=== PATIENT | female | born 1990 | race Caucasian/White ===

== ENCOUNTER 2021-12-21 09:01 | Inpatient (IN) | payer MEDICAID ==
[~2021-12-21] VITALS: Ht 162.6 cm; Wt 58.4 kg
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
[2021-12-21] MEDS ORDERED: hydrOXYzine 25 MG tablet PO ONE ×2 (09:40→11:15)
[2021-12-21] MEDS ORDERED: LORazepam 1 MG tablet PO ONE ×2 (09:40→11:15)
[2021-12-21 10:12] LABS: BASOPHILS % (AUTO) 0.4 % (0-1); EOSINOPHILS % (AUTO) 0 % (0-6); HEMATOCRIT 45.7 % (35.0-45.0); HEMOGLOBIN 15.7 g/dl (12.0-16.0); LYMPHOCYTES # (AUTO) 1.7 X10'3 (1.1-4.8); LYMPHOCYTES % (AUTO) 20.7 % (21-51); MEAN CORPUSCULAR HEMOGLOBIN 29.8 PG (27.0-31.0); MEAN CORPUSCULAR HGB CONC 34.3 g/dL (33.0-36.5); MEAN CORPUSCULAR VOLUME 86.8 FL (78-98); MEAN PLATELET VOLUME 6.8 FL (7.4-10.4); MONOCYTES # (AUTO) 0.7 X10'3 (0-0.9); NEUTROPHILS # (AUTO) 5.8 X10'3 (1.8-7.7); NEUTROPHILS % (AUTO) 70.9 % (42-75); PLATELET COUNT 306 X10'3 (140-440); RED BLOOD COUNT 5.26 X10'6 (4.20-5.60); RED CELL DISTRIBUTION WIDTH 12.8 % (11.5-14.5); WHITE BLOOD COUNT 8.1 X10'3 (4.5-11.0)
[2021-12-21 10:16] LABS: ALANINE AMINOTRANSFERASE 20 U/L (12-78); ALBUMIN 4.2 G/DL (3.4-5.0); ALBUMIN/GLOBULIN RATIO 1.1 (1.1-1.5); ALKALINE PHOSPHATASE 61 IU/L (46-116); ANION GAP 12 (8-16); ASPARTATE AMINO TRANSFERASE 10 U/L (10-37); BILIRUBIN,TOTAL 0.5 MG/DL (0.1-1.0); BLOOD UREA NITROGEN 11 MG/DL (7-18); BUN/CREATININE RATIO 11.8 (6.6-38.0); CALCIUM 9.5 MG/DL (8.5-10.1); CHLORIDE 102 MMOL/L (99-107); CREATININE 0.93 MG/DL (0.40-0.90); GLUCOSE 97 MG/DL (70-104); POTASSIUM 3.5 MMOL/L (3.5-5.1); SODIUM 138 MMOL/L (135-145); TOTAL CARBON DIOXIDE 23.6 MMOL/L (24-32); eGFR 70 ML/MIN
--- NOTE | 2021-12-21 10:46 | NUR ---
Pt's mother took me aside to inform me that the pt and her have been "hiding and using drugs." She is worried about her granddaughters well being. The location of pt's and child are unknown.
[2021-12-21 11:11] LABS: CLARITY,URINE CLEAR (Clear); COLOR,URINE YELLOW (Yellow); GLUCOSE, URINE NEGATIVE (Neg); KETONES,URINE NEGATIVE (Neg); LEUKOCYTE ESTERASE ,URINE NEGATIVE (Neg); NITRITES, URINE NEGATIVE (Neg); OCCULT BLOOD,URINE TRACE-INTACT (Neg); PROTEIN,URINE NEGATIVE (Neg); UROBILINOGEN,URINE 0.2 E.U/dL (0.2-1.0)
[2021-12-21 11:12] LABS: URINE HCG NEGATIVE (NEG)
--- NOTE | 2021-12-21 11:15 | NUR ---
Pt. ambulated over from the main ER accompainied by Tech.
[2021-12-21 11:16] LABS: UA COLLECTION TYPE VOIDED
[2021-12-21 11:17] LABS: URINE AMPHETAMINE SCREEN POSITIVE (Neg); URINE BARBITUATE SCREEN NEGATIVE (Neg); URINE BENZODIAZEPINES SCREEN NEGATIVE (Neg); URINE CANNABINOID SCREEN POSITIVE (Neg); URINE COCAINE SCREEN NEGATIVE (Neg); URINE METHADONE SCREEN NEGATIVE (Neg); URINE OPIATE SCREEN NEGATIVE (Neg); URINE PHENCYCLIDINE SCREEN NEGATIVE (Neg)
[2021-12-21] MEDS ORDERED: BUPR1FIL3 SL (11:17)
[2021-12-21 11:34] LABS: MUCUS STRANDS MANY /LPF (Neg); SQUAMOUS EPITHELIAL CELL,UR MANY /LPF (FEW)
[2021-12-21 11:38] LABS: CAL OXALATE CRYSTALS 1+ /HPF (NEGATIVE)
[2021-12-21 11:39] LABS: BACTERIA,URINE FEW /HPF (Neg); RBC,URINE 0-2 /HPF (0-2); WBC,URINE 0-4 /HPF (0-4)
--- NOTE | 2021-12-21 11:53 | NUR ---
PACKET FAXED TO [facility]
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
--- NOTE | 2021-12-21 12:16 | NUR ---
Pt's home medication, Suboxone was increased to TID per EMILIANO Coreas NP. This is r/t pt's continued drug cravings on previously prescribed BID dose.
--- NOTE | 2021-12-21 12:46 | NUR ---
Pt. is laying in bed and appears to be sleeping at this time, rise and fall of chest noted.
--- NOTE | 2021-12-21 12:56 | NUR ---
ETOH level ordered per Dr. Elena as was not done on admission and is needed by [facility].
[2021-12-21 12:59] LABS: ETHANOL < 0.010 GM/DL (0.0-0.010)
--- NOTE | 2021-12-21 13:25 | NUR ---
[facility] medical social worker at pt's bedside with her mother at this time.
[2021-12-21] MEDS ORDERED: nicotine 14mg patch - 24hr TD ONE (14:00)
[2021-12-21] MEDS: buprenorphine/naloxone 8MG-2MG SUBlingual film SL SCH ×2 (14:19→20:06)
--- NOTE | 2021-12-21 14:21 | NUR ---
Pt. is laying in bed with her eyes closed at this time, no s/s of distress observed.
[2021-12-21 14:48] VITALS: BP 130/88
--- NOTE | 2021-12-21 15:25 | NUR ---
Pt. continues to sleep at this time, rise and fall of chest is noted.
--- NOTE | 2021-12-21 16:24 | NUR ---
Pt. continues to sleep at this time, laying on her right side, rr are even and unlabored. Pt. remains on close observation and is in LOS of nurse's station.
--- NOTE | 2021-12-21 16:50 | NUR ---
Discharge Note: Pt. ambuated off the unit accompanied by Tech and security. She is being transferred to [facility]. Belongings were sent with patient.
[2021-12-21] MEDS ORDERED: acetaminophen 325mg tablet PO PRN ×2 (16:55)
[2021-12-21] MEDS ORDERED: mag hydrox/Alum hydrox/simeth 30ml oral suspension PO PRN (16:55)
[2021-12-21] MEDS ORDERED: loperamide 2mg capsule PO PRN (16:55)
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
[2021-12-21] MEDS ORDERED: hydrOXYzine 25 MG tablet PO PRN (19:30)
[2021-12-21] MEDS: NICOTINE POLACRILEX 2 MG LOZENGE BC PRN (19:34)
[2021-12-21] MEDS: traZODone 50mg tablet PO PRN ×2 (20:06→21:19)
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
[2021-12-22] MEDS: buprenorphine/naloxone 8MG-2MG SUBlingual film SL SCH ×3 (07:47→20:04)
[2021-12-22] MEDS: nicotine 21mg patch - 24 hr TD SCH (07:47)
[2021-12-22 07:59] LABS: CHOL/HDL RATIO 3.9 (0.00-4.99); CHOLESTEROL 181 MG/DL (0-200); HDL CHOLESTEROL 46 MG/DL (35-60); LDL CHOLESTEROL 114 MG/DL (50-100); TRIGLYCERIDES 70 MG/DL (20-135)
[2021-12-22 08:00] VITALS: BP 108/65
[2021-12-22] MEDS: hydrOXYzine 25 MG tablet PO PRN ×2 (10:10→20:04)
[2021-12-22] MEDS: NICOTINE POLACRILEX 2 MG LOZENGE BC PRN ×3 (10:46→18:25)
--- NOTE | 2021-12-22 12:07 | NUR ---
Malnutrition consult: Pt admitted w/ SI and polysubstance abuse per EMR. Per MST pt reports wt loss and decreased appetite. No scaled wt hx in EMR, current wt appropriate for age and ht. Currently on Regular diet w/ 50% intake of first meal. Pt appears WD/WN per ED note. No edema noted. At this time pt does not meet minimum criteria for malnutrition. Will continue to monitor. Addendum: 12/22/21 at [address] Amended: Links added.
[2021-12-22 14:21] LABS: HEMOGLOBIN A1C 5.1 % (4.5-6.2)
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
[2021-12-22] MEDS: traZODone 50mg tablet PO PRN (20:04)
[2021-12-22 20:31] VITALS: BP 131/78
[2021-12-22] MEDS: traZODone 50mg tablet PO SCH (21:00)
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
[2021-12-23 07:46] VITALS: BP 110/71
[2021-12-23] MEDS: buprenorphine/naloxone 8MG-2MG SUBlingual film SL SCH ×3 (08:18→21:18)
[2021-12-23] MEDS: nicotine 21mg patch - 24 hr TD SCH (09:14)
[2021-12-23] MEDS ORDERED: venlafaxine XR 37.5mg cap (Q24H) PO ONE (09:25)
--- NOTE | 2021-12-23 09:27 | NUR ---
Pt. attended group today. The topic today was identifying the triggers, signs and symptoms of an upcoming episode/event so that Pts. can learn to apply coping skills before they get to a bad place with their symptoms. Pt. engaged in group appropriately. Her demeanor was calm and compliant. She listened well to this Pulp Cooker and her peers. She shared her own thoughts and process openly. She was alert and oriented X 4 though she did appear a bit lethargic in her presentation. Her thought content and thought process were WNL. She engaged in the written activity about a triggering thought she has how it makes her feel. She was able to remember a positive action she could do to counter this thought. Malka Godfrey LCSW Addendum: 12/23/21 at 0939 by Malka Godfrey This note should be dated 12/22/21
[2021-12-23] MEDS: LORazepam 0.5 MG tablet PO PRN ×2 (10:44→17:15)
[2021-12-23] MEDS: hydrOXYzine 25 MG tablet PO PRN ×2 (10:46→17:30)
--- NOTE | 2021-12-23 13:30 | NUR ---
Met with patient for substance use and to see if patient was interested in treatment options. Patient would like to go to an inpatient rehab. I gave patient [facility] number to get process started and my card if she had any questions. As I was leaving patient got the phone and was calling [facility].
[2021-12-23] MEDS: NICOTINE POLACRILEX 2 MG LOZENGE BC PRN ×2 (14:17→17:29)
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
[2021-12-23 20:39] VITALS: BP 122/69
[2021-12-23] MEDS: traZODone 50mg tablet PO SCH (21:18)
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
[2021-12-24 07:55] VITALS: BP 108/62
[2021-12-24] MEDS: venlafaxine XR 75mg capsule (Q24H) PO SCH (09:00)
[2021-12-24] MEDS: buprenorphine/naloxone 8MG-2MG SUBlingual film SL SCH ×3 (09:01→20:13)
[2021-12-24] MEDS: nicotine 21mg patch - 24 hr TD SCH (09:01)
--- NOTE | 2021-12-24 11:14 | NUR ---
Pt. attended group today. Each pt. scaled their mood and anxiety level today to practice scaling. We discussed how this can be used as a safety plan tying coping skills to each increment on the scale. We also talked about the functioning of the Limbic System and how it relates to anxiety, depression and anger. Pt. engaged in the group appropriately. She shared her scaling number and her process freely with the group. She was alert and oriented X 4. Her thought content and thought process were WNL. She is actively attempting to move forward and is interested in getting the appropriate help she needs to do so. Her demeanor is calm, compliant and pleasant to work with. She appears to enjoy attending group. Her mood was a bit depressive with a restricted affect. Malka Godfrey LCSW
[2021-12-24] MEDS: LORazepam 0.5 MG tablet PO PRN ×2 (13:04→18:31)
[2021-12-24] MEDS: hydrOXYzine 25 MG tablet PO PRN (14:07)
[2021-12-24] MEDS: NICOTINE POLACRILEX 2 MG LOZENGE BC PRN ×2 (14:09→17:49)
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
--- NOTE | 2021-12-24 16:30 | NUR ---
CM- Linkages Presenting Issues: Pt's expressed desires to enter residential drug rehab and completed [facility] screening but was matched w/an outpatient intensive treatment provider. Interventions: Clinician met w/pt and provided support for pt to contact [facility], [facility] to advocate for herself w/re to inpatient services as oppose to outpt. Per session, pt completed an assessment w/[facility] and will wait for a dispo. As clinician was leaving, RN informed clinician that [facility] wants to speak w/pt, clinician encouraged pt to contact them, pt did. Plan: Clinician will f/u with pt, [facility], and [facility] to get dispo on pt's [facility] services. Marizol Tom Addendum: 12/25/21 at 0801 by Marizol Tom SS Amended: Links added.
[2021-12-24 20:00] VITALS: BP 143/87
[2021-12-24] MEDS: traZODone 50mg tablet PO SCH (20:14)
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
--- NOTE | 2021-12-25 08:10 | NUR ---
Initial: Pt admitted w/ SI and polysubstance abuse per EMR. Currently on Regular diet w/ avg intake 77% x 8 meals meeting est nutrient needs at this time. [facility] 12/22 w/ PRN bowel care available. No nutrition intervention implemented at this time, will continue to monitor. Recs: 1. Continue Regular diet as tolerated 2. Bowel care per rx 3. Weekly wts Addendum: 12/25/21 at [address] Amended: Links added.
[2021-12-25 08:16] VITALS: BP 117/69
[2021-12-25] MEDS: venlafaxine XR 75mg capsule (Q24H) PO SCH (08:35)
[2021-12-25] MEDS: buprenorphine/naloxone 8MG-2MG SUBlingual film SL SCH (08:35)
[2021-12-25] MEDS: nicotine 21mg patch - 24 hr TD SCH (08:36)
--- NOTE | 2021-12-25 09:16 | NUR ---
Pt attended both groups today. In the first group we talked about Self Nurturing about how to curate spaces of nurture/self-care for themselves. In the second group we did an Expressive Art Exercise where they jeffrey out their path to wellness which mapped out how they will keep themselves well. Pt. engaged appropriately in the groups. In the first group her mood was anxious and she shared after group how she was feeling very frustrated about her discharge plan. There were issues with her insurance and the rehab which were frustrating her and then spoke about medication issues and her frustration that she would be place on a 5250. In the second group her demeanor and mood had shifted noticeable. She happily shared that things got worked out with her insurance and rehab and she would be placed on [facility] so she could go home first and then to the rehab in [place]. She reported she feels really good about this plan. She was very open to sharing her thoughts and drawing with the group. She mapped out her steps to wellness with rehab being her first step. Malka Godfrey LCSW
[2021-12-25] MEDS: hydrOXYzine 25 MG tablet PO PRN ×2 (09:37→18:53)
[2021-12-25] MEDS: LORazepam 0.5 MG tablet PO PRN ×3 (09:37→20:14)
[2021-12-25] MEDS: magnesium hydroxide 30ml (MOM) UD suspension PO PRN (09:37)
--- NOTE | 2021-12-25 09:53 | NUR ---
Pt. reported increased anxiety r/t upcoming visit of her mother and exhibited restlessness and some irritability. PRN Ativan and Atarax administered together per JEANNETTE Chavez and will continue to monitor. Addendum: 12/25/21 at 1050 by Stephanie Guevara RN Received one-time order for 4mg of Suboxone and to discontinue current 8mg dose per Dr. Jovel. He will be changing pt's Suboxone order to BID.
--- NOTE | 2021-12-25 09:53 | NUR ---
CM-Linkage Presenting Issues: Pt expressed desires to enter drug rehab services following d/c and have been experiencing difficulties accessing services via [employer]. Interventions: Clinician met w/pt and assisted pt in contacting [facility] again, per t/c pt is auth for inpt now. Pt called C will wait for call back. Marizol Tom LCSW Addendum: 12/25/21 at 1009 by Marizol Tom SS Amended: Links added.
[2021-12-25] MEDS ORDERED: buprenorphine/naloxone 2-0.5mg sublingual tablet SL ONE ×3 (10:20→21:55)
--- NOTE | 2021-12-25 10:58 | NUR ---
CM-Pre-DCP Presenting Issues: Pt's on 5250 and plans to contest it today as pt wants to enter inpatient SUDT. Interventions: Clinician met w/pt and engaged her in dcp discussion. Per session, pt is waiting for [facility] to provide an admit date pt plans to stay w/her mother in [place] until admit date and mother will transport pt to [facility]. MSE: A/O- X4 TP-linear & coherrent TC- denies SI/HI/AH/VH/TH; no delusional statements noted, pt was focused on entering rehab Speech-WNL Mood-irritable & anxious; pt expressed frustration that the provider had put her on a 5250 Affect- mood congruent BXs- cooperating Insight-fair & age appropriate Judgement- Fair & age appropriate Plan: Pt wants to d/c to her mother's house when she gets an admit date from [facility]. Marizol Tom LCSW Addendum: 12/25/21 at 1106 by Marizol Tom SS Amended: Links added.
--- NOTE | 2021-12-25 11:45 | NUR ---
CM-DCP Presenting Issues: Pt is upset that her provider signed a 5250 for her, pt plans to contest and tell the Pre Sales Architect that she would stay @ her mother's place in [place] until she enters drug rehab. Interventions: Clinician had t/c with pt's mother to engage her in dcp activities. Per t/c, pt's mother expressed hesitancy in having pt stay at her home as pt had been agitated & argumentative during visit this morning. Pt's mother wants to help pt out but feels that pt needs to stay in the hospital and transfer from the hospital directly into rehab. Mother asked how she can attend the hearing this afternoon, clinician will check w/pt and informed her to let the pt's rights advocate know that she would like for her mother to attend the hearing via phone. Plan: Pt is waiting to hear back from [facility] re an admission for inpatient treatment. Marizol Tom LCSW Addendum: 12/25/21 at 1152 by Marizol Tom SS Amended: Links added.
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
[2021-12-25] MEDS: NICOTINE POLACRILEX 2 MG LOZENGE BC PRN (18:35)
[2021-12-25 20:00] VITALS: BP 124/69
[2021-12-25] MEDS: traZODone 50mg tablet PO SCH ×2 (20:13→22:32)
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
[2021-12-26] MEDS ORDERED: buprenorphine/naloxone 2-0.5mg sublingual tablet SL SCH (08:00)
[2021-12-26] MEDS: buprenorphine/naloxone 2-0.5mg sublingual tablet SL SCH ×2 (08:53→20:26)
[2021-12-26] MEDS: venlafaxine XR 75mg capsule (Q24H) PO SCH (08:53)
[2021-12-26] MEDS: nicotine 21mg patch - 24 hr TD SCH (08:54)
[2021-12-26] MEDS: buprenorphine/naloxone 8MG-2MG SUBlingual film SL SCH ×2 (08:54→20:26)
[2021-12-26 09:31] VITALS: BP 107/60
[2021-12-26] MEDS: magnesium hydroxide 30ml (MOM) UD suspension PO PRN (09:42)
[2021-12-26] MEDS: LORazepam 0.5 MG tablet PO PRN ×2 (12:47→20:27)
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
[2021-12-26] MEDS: NICOTINE POLACRILEX 2 MG LOZENGE BC PRN ×2 (17:14→20:01)
[2021-12-26 20:00] VITALS: BP 122/78
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
[2021-12-27 08:00] VITALS: BP 108/61
[2021-12-27] MEDS ORDERED: HYDR-3686 PO (08:48)
[2021-12-27] MEDS ORDERED: BUPR1FIL5 SL ×2 (08:48→09:11)
[2021-12-27] MEDS ORDERED: TRAZ-251 PO (08:48)
[2021-12-27] MEDS ORDERED: BUPR1FIL3 SL ×2 (08:48→09:11)
[2021-12-27] MEDS ORDERED: VENL75CA61 PO (08:48)
[2021-12-27] MEDS ORDERED: NICO-687 TD (08:48)
[2021-12-27] MEDS: nicotine 21mg patch - 24 hr TD SCH (08:49)
[2021-12-27] MEDS: buprenorphine/naloxone 2-0.5mg sublingual tablet SL SCH (08:49)
[2021-12-27] MEDS: venlafaxine XR 75mg capsule (Q24H) PO SCH (08:49)
[2021-12-27] MEDS: buprenorphine/naloxone 8MG-2MG SUBlingual film SL SCH (08:49)
[2021-12-27] MEDS: LORazepam 0.5 MG tablet PO PRN (14:13)
--- NOTE | 2021-12-27 15:30 | NUR ---
Discharge: Pt. discharged from the unit at 1530, accompanied by Monty after calling her mother who is picking her up. Belongings were inventoried and returned to pt. Pt's medications and discharge instructions were reviewed with her and she reported understanding. Pt. is able to contract for safety. Pt's mother is picking her up and will be taking her to her home where she will stay before attending substance abuse rehabilitation.
[2021-12-29] MEDS ORDERED: BUPR1TAB45 SL (14:14)
[2021-12-29] MEDS ORDERED: BUPR1TAB44 SL (14:14)
== END 2021-12-27 16:00 | disposition home or self-care (01) | DRG 751 ==
LOC: ER 09:02 → ED HOLD 14:30 → ADULT MH 16:41
PROVIDERS: ADMIT Psychiatry & Neurology Psychiatry; ATTEND Psychiatry & Neurology Psychiatry
DX: F33.2 Major depressive disorder, recurrent severe without psychotic features (principal); R45.851 Suicidal ideations; F11.20 Opioid dependence, uncomplicated; F12.10 Cannabis abuse, uncomplicated; F43.10 Post-traumatic stress disorder, unspecified; F17.210 Nicotine dependence, cigarettes, uncomplicated; Z20.822 Contact with and (suspected) exposure to COVID-19; G47.09 Other insomnia; F15.10 Other stimulant abuse, uncomplicated; Z81.8 Family history of other mental and behavioral disorders; S09.93XS Unspecified injury of face, sequela; X58.XXXS Exposure to other specified factors, sequela
CPT/HCPCS: 36415; 80053; 80061; 80305; 80320; 81001; 81025; 83036; 84443; 85025; 87081; 87635; 99285; C9803; Q0177

== ENCOUNTER 2023-10-12 06:24 | Emergency (ER) | payer MEDICAID ==
[~2023-10-12] VITALS: Ht 162.6 cm; Wt 70.5 kg
[~2023-10-12 06:24] MED LIST: BUPR1FIL3 SL; BUPR1FIL5 SL; BUPR1TAB44 SL; BUPR1TAB45 SL; HYDR-3686 PO; NICO-687 TD; TRAZ-251 PO; VENL75CA61 PO
[2023-10-12 06:32] VITALS: TEMP 98.4
[2023-10-12 07:16] LABS: BASOPHILS % (AUTO) 0.3 % (0-1); EOSINOPHILS # (AUTO) 0.1 X10'3 (0-0.9); EOSINOPHILS % (AUTO) 0.8 % (0-6); HEMATOCRIT 41.4 % (35.0-45.0); HEMOGLOBIN 14.2 g/dl (12.0-16.0); LYMPHOCYTES # (AUTO) 1.8 X10'3 (1.1-4.8); LYMPHOCYTES % (AUTO) 16.7 % (21-51); MEAN CORPUSCULAR HEMOGLOBIN 29.8 PG (27.0-31.0); MEAN CORPUSCULAR HGB CONC 34.2 g/dL (33.0-36.5); MEAN CORPUSCULAR VOLUME 87.2 FL (78-98); MEAN PLATELET VOLUME 7.3 FL (7.4-10.4); MONOCYTES # (AUTO) 0.6 X10'3 (0-0.9); MONOCYTES % (AUTO) 5.4 % (2-12); NEUTROPHILS # (AUTO) 8.2 X10'3 (1.8-7.7); NEUTROPHILS % (AUTO) 76.8 % (42-75); PLATELET COUNT 250 X10'3 (140-440); RED BLOOD COUNT 4.75 X10'6 (4.20-5.60); RED CELL DISTRIBUTION WIDTH 12.5 % (11.5-14.5); WHITE BLOOD COUNT 10.7 X10'3 (4.5-11.0)
[2023-10-12 07:35] LABS: ALANINE AMINOTRANSFERASE 17 U/L (12-78); ALBUMIN 3.8 G/DL (3.4-5.0); ALKALINE PHOSPHATASE 42 IU/L (46-116); ANION GAP 11 (8-16); ASPARTATE AMINO TRANSFERASE 17 U/L (10-37); BILIRUBIN,TOTAL 0.4 MG/DL (0.1-1.0); BLOOD UREA NITROGEN 14 MG/DL (7-18); BUN/CREATININE RATIO 15.9 (10.0-20.0); CHLORIDE 104 MMOL/L (99-107); CREATININE 0.88 MG/DL (0.40-0.90); GLUCOSE 104 MG/DL (70-104); POTASSIUM 3.7 MMOL/L (3.5-5.1); SODIUM 138 MMOL/L (135-145); TOTAL PROTEIN 7.7 G/DL (6.4-8.2); eCRCL 79 ML/MIN; eGFR 74 ML/MIN
[2023-10-12] MEDS ORDERED: dexamethasone sod phosphate 10mg/ml inj IV STA (07:35)
[2023-10-12] MEDS ORDERED: diphenhydrAMINE 50 mg/ml inj IV ONE (07:35)
[2023-10-12] MEDS ORDERED: famotidine/PF 10 mg/ml inj IV ONE (07:35)
[2023-10-12] MEDS ORDERED: acetaminophen 325mg tablet PO ONE (07:40)
[2023-10-12 07:43] LABS: PRO BRAIN NATRIURETIC PEPTIDE 111 PG/ML (0-125)
[2023-10-12 08:09] LABS: BILIRUBIN,URINE NEGATIVE (Neg); CLARITY,URINE SLIGHTLY CLOUDY (Clear); COLOR,URINE YELLOW (Yellow); GLUCOSE, URINE NEGATIVE (Neg); KETONES,URINE NEGATIVE (Neg); LEUKOCYTE ESTERASE ,URINE NEGATIVE (Neg); NITRITES, URINE NEGATIVE (Neg); OCCULT BLOOD,URINE TRACE-INTACT (Neg); PH,URINE 5.5 (4.8-8.0); PROTEIN,URINE NEGATIVE (Neg); UROBILINOGEN,URINE 0.2 E.U/dL (0.2-1.0)
[2023-10-12 08:10] LABS: URINE HCG NEGATIVE (NEG)
[2023-10-12 08:12] VITALS: BP 135/87; PULSE 71; RESP 16; O2SAT 100
[2023-10-12 08:15] LABS: UA COLLECTION TYPE CLN CATCH MIDSTREAM
[2023-10-12 08:16] LABS: BACTERIA,URINE 1+ /HPF (Neg); RBC,URINE NONE SEEN /HPF (0-2); SQUAMOUS EPITHELIAL CELL,UR MANY /LPF (FEW); WBC,URINE 0-4 /HPF (0-4)
[2023-10-12 08:17] LABS: MUCUS STRANDS MODERATE /LPF (Neg)
[2023-10-12] MEDS ORDERED: METH4TAB81 PO (09:43)
== END 2023-10-12 10:03 | disposition home or self-care (01) ==
LOC: ER 06:25
DX: T78.49XA Other allergy, initial encounter (principal)
CPT/HCPCS: 36415; 71045; 80053; 81001; 81025; 83880; 84484; 85025; 93005; 96374; 96375; 99285; J1100; J1200; J3490